=== PATIENT | female | born 1950 ===

== ENCOUNTER 2020-11-20 07:02 | Day surgery (SDC) | payer OTHER | END 2020-11-20 14:25 | disposition home or self-care (01) | LOC: AMB-ENDOS 07:02 → EDBD 13:15 → AMB-ENDOS 14:25 | PROVIDERS: ATTEND Surgery | DX: K62.89 Other specified diseases of anus and rectum (principal); Z20.822 Contact with and (suspected) exposure to COVID-19 ==

== ENCOUNTER 2021-03-12 10:15 | Inpatient (IN) | payer OTHER ==
[~2021-03-12] VITALS: Ht 157.5 cm; Wt 63.5 kg
[2021-03-12] MEDS ORDERED: PANTOPRAZOLE SO20 MG PO (13:24)
[2021-03-12] MEDS ORDERED: TOPROL XL50 M1 PO (13:24)
[2021-03-12] MEDS ORDERED: SIMVASTATIN5 MG PO (13:24)
[2021-03-12] MEDS ORDERED: ZESTRIL20 MG PO (13:24)
[2021-03-16] MEDS ORDERED: BANOPHEN25 MG (14:35)
[2021-03-16] MEDS ORDERED: ARTHRITIS PAIN650 MG (14:35)
[2021-03-16] MEDS ORDERED: ADULTS MULTIVI1 EACH (14:35)
[2021-03-16] MEDS ORDERED: SERTRALINE HCL25 MG (14:36)
[2021-03-16] MEDS ORDERED: VITAMIN E67 MG (14:36)
[2021-03-16] MEDS ORDERED: VITAMIN C500 M1 (14:36)
[2021-03-16] MEDS ORDERED: PANTOPRAZOLE SO40 MG (14:36)
[2021-03-16] MEDS ORDERED: CLONAZEPAM0.5 MG (14:36)
[2021-03-16] MEDS ORDERED: PROAIR HFA8.5 GM (14:36)
[2021-03-16] MEDS ORDERED: OMEGA 3-6-9 11200 M1 (14:37)
[2021-03-16] MEDS ORDERED: ENSURE LIQUID237 ML (14:37)
[2021-03-16] MEDS ORDERED: COLLAGEN PLUS1 EACH (14:37)
[2021-03-16] MEDS ORDERED: [UNRECOGNIZED DRUG - OTHER] (14:37)
[2021-03-16] MEDS ORDERED: EYE ITCH RELIEF5 ML (14:37)
[2021-03-20] MEDS ORDERED: HYOSCYAMINE0.125 M1 SL (08:17)
[2021-03-20] MEDS ORDERED: ANTI-GAS166 MG PO (08:17)
[2021-03-20] MEDS ORDERED: ULTRAM50 MG PO (08:18)
== END 2021-03-20 09:13 | disposition home or self-care (01) | DRG 331 ==
LOC: SURH 03-16 06:32 → O/R 03-16 06:32 → SURG 03-16 06:32 → SURH 03-16 10:15 → SURG 03-16 16:57
PROVIDERS: ADMIT Surgery; ATTEND Surgery
PROC: 0DJD8ZZ Inspection of Lower Intestinal Tract, Via Natural or Artificial Opening Endoscopic (ICD-10-PCS; 2021-03-16)
PROC: 0DTN4ZZ Resection of Sigmoid Colon, Percutaneous Endoscopic Approach (ICD-10-PCS; principal; 2021-03-16 11:00)
DX: K57.32 Diverticulitis of large intestine without perforation or abscess without bleeding (principal); I10 Essential (primary) hypertension; K63.89 Other specified diseases of intestine